=== PATIENT | female | born 1980 | race Two or more races ===

== ENCOUNTER 2024-02-16 08:49 | Outpatient (RCR) | payer BC, SELFPAY ==
--- NOTE | 2024-02-16 09:11 | PT.OIERPT ---
PT OP Initial Eval Patient Information Outpatient Physical Therapy Treatment Date: 02/16/24 Visit Reasons: Neck/pain/stiffness Medical Diagnosis: M54.2 Treatment Dx #1: neck pain Start of Care: 02/16/24 Date of Onset: 2 months ago Smoking Status Smoking Status: Never smoker Initial Assessment Subjective: Pt is 43 yr old female who c/o neck pain x2 months and stiffness L>R side. Pt denies any trauma or accidents and reports insidious onset. The stiffness is worse at night and limits turning the head. Sometimes it hurts to turn the head to drive. PMH; none reported Imaging: none Pt goal: to get rid of the pain and stiffness Objective: C/S AROM: ? Ext 50% with pain that runs down the L side of neck into UT ? Flexion full with slight onset of ssx ? L rotation: 70% of full ? R rotation: 60% of full ? B SB: 25 deg with stiffness ? C/S compression: no change ? Distraction: no change ? TTP: moderate of lower C/S paraspinals around C4-7 and UT?s ? Quiñones's reflex: negative ? flexion rotation test: positive for C1-2 limitations to the L Observation: fwd head posture Assessment: Pt presents with myofascial tenderness of lower C/S and articular ? restrictions consistent with facet pain and fwd head posture. Pt requires skilled therapy to meet goals and has good rehab potential. Eval followed by [facility] with printout. [employer] Term and [employer] Goals 1. Ind with [facility] ? 2. Improved L rotation to 85% of full ? 3. Decreased TTP of C/S paraspinals and L UT from mod to min ? 4. Pt will turn head L to R x5 with <=4/10 pain in order to drive Treatment Plan 1. Manual therapy ? 2. Therex ? 3. Modalities as indicated, mechanical traction, estim, moist heat, ice Frequency and Duration: 1-2x a week for 12 visits Certification Dates: 02/16/24 to 05/14/24 Procedure Charges OP PT Eval Mod Complex 30 minutes: Yes
== END 2024-03-09 23:59 | disposition home or self-care (01) ==
LOC: CPTX 08:49
PROVIDERS: PCP Nurse Practitioner Family; Referring Provider Nurse Practitioner Family; Visit Provider Nurse Practitioner Family
DX: M54.2 Cervicalgia (principal); M43.6 Torticollis
CPT/HCPCS: 97162

== ENCOUNTER → 2024-02-25 | Outpatient (CLI) | payer BC, SELFPAY ==
[2024-02-25 12:37] LABS: Alanine Aminotransferase 47 U/L (10-49); Albumin, Serum 4.9 gm/dL (3.5-5.0); Albumin/Globulin Ratio 1.8 (1.2-2.2); Alkaline Phosphatase 94 U/L (46-116); Anion Gap 8 (7-16); Aspartate Amino Transferase 33 U/L (0-34); BUN/Creatinine Ratio 16 Ratio (12-20); Bilirubin,Total 0.4 mg/dL (0.3-1.2); Blood Urea Nitrogen 13 mg/dL (9-23); C-Reactive Protein 0.7 mg/dL (0.0-0.9); Calcium 9.7 mg/dL (8.3-10.6); Calcium (Corrected) 9.7 mg/dL (8.5-10.1); Carbon Dioxide 25.2 mMol/L (20.0-31.0); Chloride 107 mMol/L (98-107); Creatinine (Component) 0.8 mg/dL (0.6-1.3); Globulin 2.7 gm/dL (2.3-3.5); Glucose 100 mg/dL (74-106); Osmolality,Calculated 279 (275-295); Potassium 3.6 mMol/L (3.4-5.1); Sodium 140 mMol/L (136-145); Total Protein 7.6 gm/dL (5.7-8.2); eGFR > 60 See Note
[2024-03-11 09:11] LABS: Insulin* 6.8 uIU/mL (< OR = 18.4)
== END | disposition home or self-care (01) ==
PROVIDERS: PCP Nurse Practitioner Family; Referring Provider Obstetrics & Gynecology; Visit Provider Obstetrics & Gynecology
DX: N94.6 Dysmenorrhea, unspecified (principal)
CPT/HCPCS: 36415; 80053; 83525; 86140; 86304